=== PATIENT | male | born 1955 | race Caucasian/White ===

== ENCOUNTER → 2024-10-01 | Outpatient (CLI) | payer OTHER ==
[2024-10-01 15:43] LABS: ALT 16 U/L (10-49); AST 23 U/L (14-35); Albumin 4.4 g/dL (3.8-4.9); Alkaline Phosphatase 55 U/L (41-126); Blood Urea Nitrogen 13.5 mg/dL (9.0-27.0); Calcium 9.8 mg/dL (8.7-10.3); Carbon Dioxide 27.6 mmol/L (21.6-31.8); Chloride 102 mmol/L (96-109); Globulin 2.2 g/dL (1.6-3.3); Glucose 98 mg/dL (70-110); Potassium 4.3 mmol/L (3.5-5.5); Sodium 140 mmol/L (135-145); Total Bilirubin 0.4 mg/dL (0.3-1.2); Total Protein 6.6 g/dL (6.2-8.2)
[2024-10-01 15:44] LABS: Basophils # (A) 0.03 X 10*3/uL (0.00-0.10); Basophils % (A) 0.7 %; Eosinophils # (A) 0.09 X 10*3/uL (0.04-0.35); Eosinophils % (A) 2.2 %; HGB 14.4 g/dL (13.0-17.0); Lymphocytes # (A) 1.22 X 10*3/uL (0.90-5.00); MCH 29.9 pg (27.0-32.0); MCHC 33.5 g/dL (32.0-37.0); MCV 89.2 FL (80.0-97.0); Mean Platelet Volume 9.3 FL (9.5-12.2); Monocytes # (A) 0.56 X 10*3/uL (0.20-1.00); Monocytes % (A) 13.8 %; NRBC Per 100 WBC 0 X 10*3/uL (0.00-0.01); Neutrophils # (A) 2.15 X 10*3/uL (1.80-7.70); Neutrophils % (A) 53.1 %; Platelet Count 176 X 10*3/uL (140-440); RBC 4.82 X 10*6/uL (4.40-5.60); RDW 12.4 % (11.5-14.5); WBC 4.06 X 10*3/uL (4.50-10.00)
[2024-10-02 16:25] LABS: T Helper Cell (CD4) 808 cell/ul (443-1471); T Helper Cell (CD4) % 55 % (35-66); T Suppressor Cell (CD8) 304 cell/ul (190-832); T Suppressor Cell (CD8) % 21 % (9-37); T4/T8 Ratio (CD4:CD8) 2.7 (1.0-3.7)
[2024-10-04 09:16] LABS: HIV-1 RNA Not detected (Not detected)
== END | disposition home or self-care (01) ==
LOC: LABWHC1 10:15
PROVIDERS: ATTEND Internal Medicine Infectious Disease
DX: B20 Human immunodeficiency virus [HIV] disease (principal)
CPT/HCPCS: 36415; 80053; 85025; 86360; 87535

== ENCOUNTER 2025-01-07 10:40 | Observation (INO) | payer MEDICARE, OTHER ==
--- NOTE | 2025-01-07 11:14 | ED ---
Chest Pain HPI - General Source: patient, RN notes reviewed Mode of arrival: ambulatory Limitations: no limitations <Davide Patel - Last Filed: 01/07/25 11:12> - General Source: patient, RN notes reviewed Limitations: no limitations <Benedicto Mccoy - Last Filed: 01/07/25 14:26> - General Chief Complaint: Chest Pain Stated Complaint: chest pains Time Seen by Provider: 01/07/25 10:57 - History of Present Illness Initial Comments: Quick note: This is a 69-year-old male complaining of left lower chest pain x 3 days. Patient states pain is constant and throbbing with associated lightheadedness. Endorses family history of father and grandfather having cardiac issues but denies personal history. Denies dyspnea, radiating pain, sweating, pallor. (Davide Patel) Patient is a 69-year-old male present to the emergency department with concerns with chest discomfort. Onset of symptoms was around 3 days ago. Patient has had occasional symptoms previously however not been evaluated. Symptoms are more prolonged and consistent this time. Discomfort is currently rated 5/10. No associated dyspnea, nausea, or diaphoresis. No calf pain or swelling. (Benedicto Mccoy) - Related Data Allergies Allergy/AdvReac Type Severity Reaction Status Date / Time No Known Allergies Allergy Verified 01/07/25 10:44 Review of Systems ROS Other: All systems not noted in ROS Statement are negative. <Davide Patel - Last Filed: 01/07/25 11:12> ROS Other: All systems not noted in ROS Statement are negative. Constitutional: Denies: fever Eyes: Denies: eye pain ENT: Denies: ear pain Respiratory: Denies: dyspnea Cardiovascular: Reports: as per HPI, chest pain Endocrine: Denies: fatigue Gastrointestinal: Denies: abdominal pain Musculoskeletal: Denies: back pain <Benedicto Mcocy - Last Filed: 01/07/25 14:26> ROS Statement: Those systems with pertinent positive or pertinent negative responses have been documented in the HPI. EKG Findings - EKG Results: EKG: interpreted by ERMD (T wave inversion leads III and aVF.), sinus rhythm, normal axis, normal QRS <Benedicto Mccoy - Last Filed: 01/07/25 14:26> Past Medical History Additional Past Medical History / Comment(s): HIV History of Any Multi-Drug Resistant Organisms: None Reported Past Surgical History: Orthopedic Surgery Past Psychological History: No Psychological Hx Reported Smoking Status: Never smoker Past Alcohol Use History: Occasional Past Drug Use History: None Reported <Davide Patel - Last Filed: 01/07/25 11:12> General Exam Limitations: no limitations <Davide Patel - Last Filed: 01/07/25 11:12> Limitations: no limitations General appearance: alert, in no apparent distress Head exam: Present: normocephalic Eye exam: Present: normal appearance Neck exam: Present: normal inspection Respiratory exam: Present: normal lung sounds bilaterally Cardiovascular Exam: Present: regular rate, normal rhythm, normal heart sounds Expanded Peripheral pulses: 2+: Radial (R), Radial (L), Posterior Tibialis (R), Posterior Tibialis (L) GI/Abdominal exam: Present: soft. Absent: tenderness Extremities exam: Present: normal inspection. Absent: pedal edema, calf tenderness Neurological exam: Present: alert Psychiatric exam: Present: normal affect, normal mood Skin exam: Present: normal color <Benedicto Mccoy - Last Filed: 01/07/25 14:26> - General Exam Comments Initial Comments: Visual Physical Exam Vital signs reviewed General: Well-appearing, nontoxic, no acute distress. Head: Normocephalic, atraumatic Eyes: PERRLA, EOMI ENT: Airway patent Chest: Nonlabored breathing Skin: No visual rash, normal skin tone Neuro: Alert and oriented 3 Musculoskeletal: No gross abnormalities (Davide Patel) Course Vital Signs 01/07/25 01/07/25 10:42 13:58 Temperature 98.2 F Pulse Rate 71 64 Respiratory 20 Rate Blood Pressure 152/76 122/74 O2 Sat by Pulse 99 Oximetry Chest Pain MDM <Davide Patel - Last Filed: 01/07/25 11:12> <Benedicto Mccoy - Last Filed: 01/07/25 14:26> - MDM I completed the quick note portion of this chart signed SHERYL Dsouza (Davide Patel) Was pt. sent in by a medical professional or institution (THANIA Cook, [facility]ER, urgent care, hospital, or alf...) When possible be specific @ -No Did you speak to anyone other than the patient for history (EMS, parent, family, police, friend...)? What history was obtained from this source @ -No Did you review nursing and triage notes (agree or disagree)? Why? @ -I reviewed and agree with nursing and triage notes Were old charts reviewed (outside hosp., previous admission, EMS record, old EKG, old radiological studies, urgent care reports/EKG's, alf records)? Report findings @ -No old charts were reviewed Differential Diagnosis (chest pain, altered mental status, abdominal pain women, abdominal pain men, vaginal bleeding, weakness, fever, dyspnea, syncope, headache, dizziness, GI bleed, back pain, seizure, CVA, palpatations, mental health, musculoskeletal)? @ -Differential Chest Pain: Stable Angina, Unstable Angina, STEMI, NSTEMI Aortic Dissection, Pneumothorax, Musculoskeletal, Esophageal Spasm GERD, Cholecystitis, Pancreatitis, Zoster, this is not meant to be an all-inclusive list. EKG interpreted by me (3pts min.). @ -As above X-rays interpreted by me (1pt min.). @ -Chest x-ray does not reveal acute abnormality CT interpreted by me (1pt min.). @ -None done U/S interpreted by me (1pt. min.). @ -None done What testing was considered but not performed or refused? (CT, X-rays, U/S, labs)? Why? @ -None What meds were considered but not given or refused? Why? @ -None Did you discuss the management of the patient with other professionals (professionals i.e. , PA, COAL MINER, lab, RT, psych nurse, social welfare research worker, phytochemistry professor, teacher, budget officer, adult protective caseworker)? Give summary @ -Case was discussed with Dr. Cheema who will admit covering Dr. Bruno Was smoking cessation discussed for >3mins.? @ -No Was critical care preformed (if so, how long)? @ -No Were there social determinants of health that impacted care today? How? (Homelessness, low income, unemployed, alcoholism, drug addiction, transportation, low edu. Level, literacy, decrease access to med. care, residential, rehab)? @ -No Was there de-escalation of care discussed even if they declined (Discuss DNR or withdrawal of care, Hospice)? DNR status @ -No What co-morbidities impacted this encounter? (DM, HTN, Smoking, COPD, CAD, Cancer, CVA, ARF, Chemo, Hep., AIDS, mental health diagnosis, sleep apnea, morbid obesity)? @ -None Was patient admitted / discharged? Hospital course, mention meds given and route, prescriptions, significant lab abnormalities, going to OR and other pertinent info. @ -Patient presents with chest discomfort. Initial troponin unremarkable. Patient will be admitted with cardiac consult. Admission orders written. Patient updated on results and plan. Undiagnosed new problem with uncertain prognosis? @ -No Drug Therapy requiring intensive monitoring for toxicity (Heparin, Nitro, Insulin, Cardizem)? @ -No Were any procedures done? @ -No Diagnosis/symptom? @ -Chest pain Acute, or Chronic, or Acute on Chronic? @ -Acute Uncomplicated (without systemic symptoms) or Complicated (systemic symptoms)? @ -Default Side effects of treatment? @ -No Exacerbation, Progression, or Severe Exacerbation? @ -No Poses a threat to life or bodily function? How? (Chest pain, [place], MA, pneumonia, PE, COPD, DKA, ARF, appy, cholecystitis, CVA, Diverticulitis, Homicidal, Suicidal, threat to staff... and all critical care pts) @ -Threat to cardiac function (Benedicto Mccoy) Disposition <Davide Patel - Last Filed: 01/07/25 11:12> Is patient prescribed a controlled substance at d/c from ED?: No Time of Disposition: 14:26 <Benedicto Mccoy - Last Filed: 01/07/25 14:26> Clinical Impression: Chest pain Disposition: ADMITTED IP TO THIS HOSP Referrals: Shannan Henao MD [Primary Care Provider] - 1-2 days
[2025-01-07 11:16] LABS: Appearance,Urine Clear (Clear); Bilirubin,Urine Negative (Negative); Blood,Urine Negative (Negative); Color,Urine Colorless; Glucose,Urine (UA) Trace (Negative); Ketones,Urine Negative (Negative); Leukocyte Esterase,Urine Negative (Negative); Nitrite,Urine Negative (Negative); Protein,Urine Negative (Negative); Specific Gravity,Urine 1.002 (1.001-1.035); Urobilinogen,Urine <2.0 mg/dL (<2.0)
[2025-01-07 11:22] LABS: Basophils % (A) 0 %; Eosinophils # (A) 0.1 k/uL (0-0.7); Eosinophils % (A) 2 %; HCT 47.5 % (39.0-53.0); HGB 15.3 gm/dL (13.0-17.5); Lymphocytes # (A) 1.3 k/uL (1.0-4.8); Lymphocytes % (A) 30 %; MCH 29.6 pg (25.0-35.0); MCHC 32.2 g/dL (31.0-37.0); MCV 91.7 fL (80.0-100.0); Mean Platelet Volume 6.9; Monocytes # (A) 0.3 k/uL (0-1.0); Monocytes % (A) 7 %; Neutrophils # (A) 2.5 k/uL (1.3-7.7); Neutrophils % (A) 58 %; Platelet Count 201 k/uL (150-450); RBC 5.18 m/uL (4.30-5.90); RDW 12.6 % (11.5-15.5); WBC 4.2 k/uL (3.8-10.6)
[2025-01-07 11:28] LABS: INR 0.9 (<1.2); Partial Thromboplastin Time 23.1 sec (22.0-30.0); Prothrombin Time 10.4 sec (10.0-12.5)
[2025-01-07 11:44] LABS: ALT 17 U/L (4-49); AST 24 U/L (17-59); African American GFR (CKD) >90 (>60 ml/min/1.73 sqM); Albumin 4.6 g/dL (3.5-5.0); Alkaline Phosphatase 55 U/L (38-126); Anion Gap 11 mmol/L; Blood Urea Nitrogen 18 mg/dL (9-20); Calcium 10.2 mg/dL (8.4-10.2); Carbon Dioxide 26 mmol/L (22-30); Chloride 102 mmol/L (98-107); Glucose 106 mg/dL (74-99); Magnesium 2.1 mg/dL (1.6-2.3); Non-African American GFR(CKD) 86 (>60 ml/min/1.73 sqM); Potassium 4.1 mmol/L (3.5-5.1); Sodium 139 mmol/L (137-145); Total Bilirubin 0.6 mg/dL (0.2-1.3); Total Protein 7.4 g/dL (6.3-8.2)
--- NOTE | 2025-01-07 12:09 | XR ---
EXAMINATION TYPE: XR chest 2V DATE OF EXAM: 01/07/2025 11:59 AM COMPARISON: None CLINICAL INDICATION: Male, 69 years old with history of Chest Pain; TECHNIQUE: XR chest 2V Frontal and lateral views of the chest. FINDINGS: Lungs/Pleura: There is flattening of the diaphragm with increased lucency of the lungs. No evidence o f pneumothorax, pleural effusion or focal consolidation. Pulmonary vascularity: Unremarkable. Heart/mediastinum: Cardiomediastinal silhouette is unremarkable. Musculoskeletal: No acute osseous pathology. IMPRESSION: 1. No acute cardiopulmonary disease process. 2. COPD changes. [facility], , 01/07/2025 12:07 PM
[2025-01-07] MEDS ORDERED: NITROGLYCERIN SL TABS 0.4 MG TAB SUBLINGUAL PRN (14:27)
[2025-01-07] MEDS: NITROGLYCERIN OINT 1 INCH/GM PACKET TOPICAL SCH (14:52)
[2025-01-07] MEDS: ASPIRIN 81 MG PO STA (14:53)
[2025-01-07] MEDS: (Elviteg/Cob/Emtri/Tenof Alafen [Genvoya Tablet] 1 EACH Tablet) PO SCH (20:03)
[2025-01-07] MEDS: GABAPENTIN 300 MG CAP PO SCH (20:03)
[2025-01-07] MEDS: ATORVASTATIN 10 MG TAB PO SCH (20:03)
[2025-01-08] MEDS: ASPIRIN 81 MG PO SCH (08:09)
[2025-01-08] MEDS ORDERED: ASPIRIN 325 MG TAB PO SCH (09:00)
[2025-01-08 09:28] LABS: Chol/HDL Ratio 3.89 Ratio; LDL Cholesterol,Calculated 114.7 mg/dL (0.0-131.0)
--- NOTE | 2025-01-08 09:50 | P.CRDCN ---
History of Present Illness History of present illness: HISTORY OF PRESENT ILLNESS: This is a 69-year-old male with a past medical history significant for HIV and hyperlipidemia. Patient does not follow with a coal passer. We have been asked to see the patient in consultation for chest pain. Patient examined at the bedside. Patient reports pain in the middle of his chest that started a few days. He states the pain is not worse or better with movement. He states it was a dull achy pain. He does report having some occasional sharp pains under the left breast. He does report a family history of CAD. He denies any chest pain at the time of examination. DIAGNOSTICS: - EKG reveals sinus mechanism with T wave inversions inferiorly. No previous EKG available for comparison. - Chest xray COPD changes. No acute cardiopulmonary process. - Laboratory data: WBC 4.2. Hemoglobin 15.3. Platelet count 201. Sodium 139. Potassium 4.1. BUN 18. Creatinine 0.92. Magnesium 2.1. Troponin negative x 3 - Current home cardiac medications include simvastatin 10 mg at night and aspirin 81 mg daily. - No previous echocardiogram, stress test, or cardiac catheterization available in EMR for review REVIEW OF SYSTEMS: At the time of my exam: CONSTITUTIONAL: Denies fever or chills. HEENT: Denies blurred vision, vision changes, or eye pain. Denies hemoptysis CARDIOVASCULAR: Denies chest pain. Denies orthopnea. Denies PND. Denies palpitations RESPIRATORY: Denies shortness of breath. GASTROINTESTINAL: Denies abdominal pain. Denies nausea or vomiting. HEMATOLOGIC: Denies bleeding disorders. GENITOURINARY: Denies any blood in urine. SKIN: Denies pruitis. Denies rash. PHYSICAL EXAM: VITAL SIGNS: Reviewed. GENERAL: Well-developed in no acute distress. HEENT: Head is normocephalic. Pupils are equal, round. Sclerae anicteric. Mucous membranes of the mouth are moist. Neck supple. No JVD or thyromegaly LUNGS: Respirations even and unlabored. Lungs essentially clear to auscultation bilaterally. HEART: Regular rate and rhythm. S1 and S2 heard. ABDOMEN: Soft. Nondistended. Nontender. EXTREMITIES: Normal range of motion. No clubbing or cyanosis. Peripheral pulses intact. No lower extremity edema NEUROLOGIC: Awake and alert. Oriented x 3. ASSESSMENT: Chest pain, troponin negative x 3 Hyperlipidemia History of HIV Family history of premature coronary artery disease PLAN: An acute coronary event has been ruled out Obtain 2D echo to assess cardiac structure and function Resume home cardiac medications including aspirin and simvastatin Patient to undergo stress echocardiogram on Friday Further recommendations pending patient course Nurse practitioner note has been reviewed by physician. Signing provider agrees with the documented findings, assessment, and plan of care documented by PUBLIC WEIGHER as a scribe. Past Medical History Additional Past Medical History / Comment(s): HIV History of Any Multi-Drug Resistant Organisms: None Reported Past Surgical History: Orthopedic Surgery Past Psychological History: No Psychological Hx Reported Smoking Status: Never smoker Past Alcohol Use History: Occasional Past Drug Use History: None Reported Medications and Allergies Home Medications Medication Instructions Recorded Confirmed Type Aspirin EC [Ecotrin Low Dose] 81 mg PO DAILY 01/07/25 01/07/25 History Elviteg/Cob/Emtri/Tenof Alafen 1 tab PO HS 01/07/25 01/07/25 History [Genvoya Tablet] Gabapentin 300 mg PO BID 01/07/25 01/07/25 History Simvastatin [Zocor] 10 mg PO HS 01/07/25 01/07/25 History Allergies Allergy/AdvReac Type Severity Reaction Status Date / Time Unknown pain medication Allergy Unknown Uncoded 01/07/25 15:23 Physical Exam Vitals: Vital Signs Temp Pulse Pulse Resp BP BP Pulse Ox 01/08/25 02:00 98.3 F 73 16 94/51 98 01/07/25 20:00 97.8 F 63 17 124/71 96 01/07/25 16:50 97.8 F 64 16 126/71 98 01/07/25 16:38 97.6 F 70 16 116/69 97 01/07/25 15:30 67 18 129/70 97 01/07/25 13:58 64 122/74 01/07/25 10:42 98.2 F 71 20 152/76 99 Intake and Output 01/07/25 01/08/25 01/08/25 22:59 06:59 14:59 Intake Total 240 Balance 240 Intake: Oral 240 Other: Voiding Method Toilet # Voids 2 2 Weight 68.039 kg Results 01/07/25 11:02 01/07/25 11:02 Cardiac Enzymes 01/07/25 01/07/25 01/07/25 Range/Units 11:02 11:02 15:08 AST 24 (17-59) U/L Troponin I <0.012 <0.012 (0.000-0.034) ng/mL 01/07/25 Range/Units 18:32 AST (17-59) U/L Troponin I <0.012 (0.000-0.034) ng/mL Coagulation 01/07/25 Range/Units 11:02 PT 10.4 (10.0-12.5) sec APTT 23.1 (22.0-30.0) sec CBC 01/07/25 Range/Units 11:02 WBC 4.2 (3.8-10.6) k/uL RBC 5.18 (4.30-5.90) m/uL Hgb 15.3 (13.0-17.5) gm/dL Hct 47.5 (39.0-53.0) % Plt Count 201 (150-450) k/uL Comprehensive Metabolic Panel 01/07/25 Range/Units 11:02 Sodium 139 (137-145) mmol/L Potassium 4.1 (3.5-5.1) mmol/L Chloride 102 (98-107) mmol/L Carbon Dioxide 26 (22-30) mmol/L BUN 18 (9-20) mg/dL Creatinine 0.92 (0.66-1.25) mg/dL Glucose 106 H (74-99) mg/dL Calcium 10.2 (8.4-10.2) mg/dL AST 24 (17-59) U/L ALT 17 (4-49) U/L Alkaline Phosphatase 55 (38-126) U/L Total Protein 7.4 (6.3-8.2) g/dL Albumin 4.6 (3.5-5.0) g/dL Current Medications Generic Name Dose Route Start Last Admin Trade Name Freq PRN Reason Stop Dose Admin Aspirin 81 mg 01/08/25 09:00 Aspirin 81 Mg PO DAILY DAVID Atorvastatin Calcium 10 mg 01/07/25 21:00 01/07/25 20:03 Atorvastatin 10 Mg Tab PO 10 mg HS DAVID Administration Gabapentin 300 mg 01/07/25 21:00 01/07/25 20:03 Gabapentin 300 Mg Cap PO 300 mg BID DAVID Administration Nitroglycerin 0.4 mg 01/07/25 14:27 Nitroglycerin Sl Tabs 0.4 Mg Tab SUBLINGUAL Q5M PRN Chest Pain Nitroglycerin 0.5 inch 01/07/25 14:30 01/08/25 05:10 Nitroglycerin Oint 1 Inch/Gm Packet TOPICAL Not Given Q6HR DAVID (Elviteg/Cob/Emtri/ 1 each 01/07/25 21:00 01/07/25 20:03 Tenof Alafen [ PO Not Given Genvoya Tablet] 1 HS DAVID Each Tablet) Intake and Output 01/07/25 01/08/25 01/08/25 22:59 06:59 14:59 Intake Total 240 Balance 240 Intake: Oral 240 Other: Voiding Method Toilet # Voids 2 2 Weight 68.039 kg 01/07/25 11:02 01/07/25 11:02
--- NOTE | 2025-01-08 11:27 | CA ---
Transthoracic Echo Report Name: Lior Palm Age: 69 Gender: M : 1955 Exam Date: 01/08/2025 09:12 Exam Location: [place] [facility] Ht (in): 66 Wt (lb): 150 Ordering Physician: Matilda Lozano Attending/Referring Phys: [id number], Blake Floor Associate La Zuleta RDCS Procedure CPT: Indications: LV function, chest pain Cardiac Hx: Technical Quality: Good Contrast 1: Total Dose (mL): Contrast 2: Total Dose (mL): MEASUREMENTS (Male / Female) Normal Values 2D ECHO LV Diastolic Diameter PLAX 4.6 cm 4.2 - 5.9 / 3.9 - 5.3 cm LV Systolic Diameter PLAX 2.5 cm IVS Diastolic Thickness 1.3 cm 0.6 - 1.0 / 0.6 - 0.9 cm LVPW Diastolic Thickness 1.1 cm 0.6 - 1.0 / 0.6 - 0.9 cm LV Relative Wall Thickness 0.5 RV Internal Dim ED PLAX 1.9 cm LA Systolic Diameter LX 3.1 cm 3.0 - 4.0 / 2.7 - 3.8 cm LV Diastolic Volume MOD BP 64.2 cm??? 67 - 155 / 56 - 104 cm??? LV Systolic Volume MOD BP 24.8 cm??? - 58 / 19 - 49 cm??? LV Ejection Fraction MOD BP 61.4 % >= 55 % LV Cardiac Index MOD BP 1543.6 cm???/min???m??? LV Diastolic Volume MOD 4C 84.0 cm??? LV Systolic Volume MOD 4C 26.4 cm??? LV Ejection Fraction MOD 4C 68.5 % LV Cardiac Index MOD 4C 2251.6 cm???/min???m??? LV Diastolic Length 4C 7.0 cm LV Systolic Length 4C 5.6 cm LV Diastolic Volume MOD 2C 47.1 cm??? LV Systolic Volume MOD 2C 21.2 cm??? LV Ejection Fraction MOD 2C 55.1 % LV Cardiac Index MOD 2C 1015.7 cm???/min???m??? LV Diastolic Length 2C 6.6 cm LV Systolic Length 2C 6.2 cm LA Volume 48.8 cm??? 18 - 58 / 22 - 52 cm??? LA Volume Index 27.3 cm???/m??? 16 - 28 cm???/m??? M-MODE Aortic Root Diameter MM 3.7 cm LA Systolic Diameter MM 3.3 cm LA Ao Ratio MM 0.9 AV Cusp Separation MM 2.1 cm DOPPLER AI Peak Velocity 397.6 cm/s AI Peak Gradient 63.2 mmHg AI Pressure Half Time 1076.6 ms MV Area PHT 3.1 cm??? Mitral E Point Velocity 79.3 cm/s Mitral A Point Velocity 88.3 cm/s Mitral E to A Ratio 0.9 MV Deceleration Time 245.9 ms TR Peak Velocity 210.6 cm/s TR Peak Gradient 17.7 mmHg FINDINGS Left Ventricle Left ventricular ejection fraction is estimated at 55-60 %. Normal left ventricular systolic function with no obvious regional wall motion abnormalities. Left ventricular cavity size normal. Mildly increased septal wall thickness. Right Ventricle Normal right ventricular size and function. Right ventricular systolic pressure within normal limits. Right Atrium Normal right atrial size. Left Atrium Normal left atrial size. Mitral Valve Structurally normal mitral valve. Mild mitral regurgitation. No mitral stenosis. Aortic Valve Trileaflet aortic valve. Mild aortic regurgitation. No aortic stenosis. Thickened aortic valve without stenosis. Tricuspid Valve Structurally normal tricuspid valve. Mild tricuspid regurgitation. No tricuspid stenosis. Pulmonic Valve Structurally normal pulmonic valve. Trace pulmonic regurgitation. No pulmonic stenosis. Pericardium No pericardial or pleural effusion. Aorta Mild aortic dilatation at the level of the sinuses of valsalva (root). CONCLUSIONS normal lv function Previewed by: Dr. Damien Fried MD (Electronically Signed) Final Date: 08 January 2025 11:27
--- NOTE | 2025-01-08 12:16 | P.HPIM ---
History of Present Illness H&P Date: 01/08/25 Lior Palm, is a 69-year-old male who presented to [facility] emergency room with a chief complaint of chest pain, patient describes a dull ache on the left side of his chest that started 2 days ago. He was evaluated in the emergency room vital examination on presentation reveal ed a temperature of 98.2 pulse 71 respiration 20 blood pressure 152/76 pulse ox 99% on room air Laboratory data revealed a white blood count of 4.2 hemoglobin 15.3 platelet count 201 BUN 18 creatinine 0.92 troponin 0.012 Testing in the emergency room revealed EKG revealed sinus rhythm with nonspecif ic T wave abnormalities, chest x-ray revealed no acute cardiopulmonary disease process, COPD changes. Patient was admitted to medical floor for further evaluation and treatment Past Medical History Additional Past Medical History / Comment(s): HIV History of Any Multi-Drug Resistant Organisms: None Reported Past Surgical History: Orthopedic Surgery Past Psychological History: No Psychological Hx Reported Smoking Status: Never smoker Past Alcohol Use History: Occasional Past Drug Use History: None Reported Medications and Allergies Home Medications Medication Instructions Recorded Confirmed Type Aspirin EC [Ecotrin Low Dose] 81 mg PO DAILY 01/07/25 01/07/25 History Elviteg/Cob/Emtri/Tenof Alafen 1 tab PO HS 01/07/25 01/07/25 History [Genvoya Tablet] Gabapentin 300 mg PO BID 01/07/25 01/07/25 History Simvastatin [Zocor] 10 mg PO HS 01/07/25 01/07/25 History Allergies Allergy/AdvReac Type Severity Reaction Status Date / Time Unknown pain medication Allergy Unknown Uncoded 01/07/25 15:23 Physical Exam Vitals: Vital Signs Temp Pulse Pulse Resp BP BP Pulse Ox 01/08/25 07:00 98.2 F 60 16 111/62 96 01/08/25 02:00 98.3 F 73 16 94/51 98 01/07/25 20:00 97.8 F 63 17 124/71 96 01/07/25 16:50 97.8 F 64 16 126/71 98 01/07/25 16:38 97.6 F 70 16 116/69 97 01/07/25 15:30 67 18 129/70 97 01/07/25 13:58 64 122/74 01/07/25 10:42 98.2 F 71 20 152/76 99 Intake and Output 01/07/25 01/08/25 01/08/25 22:59 06:59 14:59 Intake Total 240 118 Balance 240 118 Intake: Oral 240 118 Other: Voiding Method Toilet Toilet # Voids 2 2 Weight 68.039 kg In general patient is alert and oriented x 3 in no distress HEENT head normocephalic and atraumatic Neck is supple no JVD no goiter no lymphadenopathy no carotid bruit Chest examination is clear to auscultation no crackles no wheezing Cardiac exam reveals regular heart sounds S1 and S2 no gallops no murmurs Abdomen is soft nontender no organomegaly with normal bowel sounds Extremity exam reveals no edema no cyanosis or clubbing Neurological examination reveals no gross focal deficits Results CBC & Chem 7: 01/07/25 11:02 01/07/25 11:02 Labs: Abnormal Lab Results - Last 24 Hours (Table) 01/07/25 01/07/25 01/07/25 Range/Units 11:02 11:02 11:02 Glucose 106 H (74-99) mg/dL Triglycerides 166.00 H (0.00-149.00) mg/dL Urine Glucose (UA) Trace H (Negative) Assessment and Plan Plan: Chest pain Underlying history of hyperlipidemia Underlying history of HIV positive status Underlying history of peripheral neuropathy Family history of premature coronary artery disease At this time patient is admitted to telemetry floor Home medications reviewed and reordered Serial EKG and cardiac enzymes ordered, echocardiogram ordered, cardiology consultation requested Will follow closely
[2025-01-08] MEDS: ATORVASTATIN 20 MG TAB PO SCH (19:35)
--- NOTE | 2025-01-09 09:05 | P.PN ---
Subjective Progress Note Date: 01/09/25 Lior Palm, is a 69-year-old male who presented to [facility] emergency room with a chief complaint of chest pain, patient describes a dull ache on the left side of his chest that started 2 days ago. He was evaluated in the emergency room vital examination on presentation revealed a temperature of 98.2 pulse 71 respiration 20 blood pressure 152/76 pulse ox 99% on room air Laboratory data revealed a white blood count of 4.2 hemoglobin 15.3 platelet count 201 BUN 18 creatinine 0.92 troponin 0.012 Testing in the emergency room revealed EKG revealed sinus rhythm with nonspecific T wave abnormalities, chest x-ray revealed no acute cardiopulmonary disease process, COPD changes. Patient was admitted to medical floor for further evaluation and treatment On 01/09/2025 patient was seen and examined on the medical floor he is alert and oriented x 3 in no apparent distress he is still having some dull ache on the left side of his chest otherwise he denies any complaints there is no fever or chills no headache or dizziness no shortness of breath no cough no nausea or vomiting no abdominal pain no diarrhea and no urinary symptoms, plan per cardiology is for a stress test on Friday. Objective - Vital Signs Vital signs: Vital Signs Temp 97.7 F 01/09/25 01:25 Pulse 71 01/09/25 01:25 Resp 16 01/09/25 01:25 BP 119/74 01/09/25 01:25 Pulse Ox 97 01/09/25 01:25 FiO2 Intake & Output 01/08/25 01/08/25 01/09/25 06:59 18:59 06:59 Intake Total 354 Balance 354 Intake: Oral 354 Other: Voiding Method Toilet Toilet Toilet # Voids 2 2 3 - Exam In general patient is alert and oriented x 3 in no distress HEENT head normocephalic and atraumatic Neck is supple no JVD no goiter no lymphadenopathy no carotid bruit Chest examination is clear to auscultation no crackles no wheezing Cardiac exam reveals regular heart sounds S1 and S2 no gallops no murmurs Abdomen is soft nontender no organomegaly with normal bowel sounds Extremity exam reveals no edema no cyanosis or clubbing Neurological examination reveals no gross focal deficits - Labs CBC & Chem 7: 01/07/25 11:02 01/07/25 11:02 Labs: Abnormal Lab Results - Last 24 Hours (Table) 01/07/25 Range/Units 11:02 Triglycerides 166.00 H (0.00-149.00) mg/dL Assessment and Plan Plan: Chest pain Underlying history of hyperlipidemia Underlying history of HIV positive status Underlying history of peripheral neuropathy Family history of premature coronary artery disease At this time patient is admitted to telemetry floor Home medications reviewed and reordered Serial EKG and cardiac enzymes ordered, echocardiogram ordered, cardiology consultation requested Will follow closely
[2025-01-09 09:21] LABS: Basophils # (A) 0.03 X 10*3/uL (0.00-0.10); Basophils % (A) 0.6 %; Eosinophils # (A) 0.13 X 10*3/uL (0.04-0.35); Eosinophils % (A) 2.6 %; HCT 41.7 % (39.6-50.0); HGB 14.3 g/dL (13.0-17.0); Lymphocytes # (A) 1.91 X 10*3/uL (0.90-5.00); Lymphocytes % (A) 38.8 %; MCH 30.5 pg (27.0-32.0); MCHC 34.3 g/dL (32.0-37.0); MCV 88.9 FL (80.0-97.0); Mean Platelet Volume 9.8 FL (9.5-12.2); Monocytes # (A) 0.44 X 10*3/uL (0.20-1.00); Monocytes % (A) 8.9 %; NRBC Per 100 WBC 0 X 10*3/uL (0.00-0.01); Neutrophils % (A) 48.9 %; Platelet Count 186 X 10*3/uL (140-440); RBC 4.69 X 10*6/uL (4.40-5.60); RDW 12.1 % (11.5-14.5); WBC 4.92 X 10*3/uL (4.50-10.00)
[2025-01-09 09:22] LABS: ALT 14 U/L (10-49); AST 20 U/L (14-35); Albumin 4.1 g/dL (3.8-4.9); Albumin/Globulin Ratio 2.16 Ratio (1.60-3.17); Alkaline Phosphatase 54 U/L (41-126); Blood Urea Nitrogen 17.6 mg/dL (9.0-27.0); Calcium 9.5 mg/dL (8.7-10.3); Carbon Dioxide 25.4 mmol/L (21.6-31.8); Chloride 104 mmol/L (96-109); Globulin 1.9 g/dL (1.6-3.3); Glucose 96 mg/dL (70-110); Potassium 4.5 mmol/L (3.5-5.5); Sodium 139 mmol/L (135-145); Total Bilirubin 0.2 mg/dL (0.3-1.2)
--- NOTE | 2025-01-09 10:18 | P.PN ---
Subjective HISTORY OF PRESENT ILLNESS: This is a 69-year-old male with a past medical history significant for HIV and hyperlipidemia. Patient does not follow with a receiver bulk system. We have been asked to see the patient in consultation for chest pain. Patient examined at the bedside. Patient reports pain in the middle of his chest that started a few days. He states the pain is not worse or better with movement. He states it was a dull achy pain. He does report having some occasional sharp pains under the left breast. He does report a family history of CAD. He denies any chest pain at the time of examination. DIAGNOSTICS: - EKG reveals sinus mechanism with T wave inversions inferiorly. No previous EKG available for comparison. - Chest xray COPD changes. No acute cardiopulmonary process. - Laboratory data: WBC 4.2. Hemoglobin 15.3. Platelet count 201. Sodium 139. Potassium 4.1. BUN 18. Creatinine 0.92. Magnesium 2.1. Troponin negative x 3 - Current home cardiac medications include simvastatin 10 mg at night and aspirin 81 mg daily. - No previous echocardiogram, stress test, or cardiac catheterization available in EMR for review 01/09/2025 Patient examined this morning at the bedside. Patient currently denies chest pain or pressure. He denies shortness of breath. Vital signs are stable. 2D echo obtained revealing ejection fraction 55-60 % with mild MR and mild TR. PHYSICAL EXAM: VITAL SIGNS: Reviewed. GENERAL: Well-developed in no acute distress. HEENT: Head is normocephalic. Pupils are equal, round. Sclerae anicteric. Mucous membranes of the mouth are moist. Neck supple. No JVD or thyromegaly LUNGS: Respirations even and unlabored. Lungs essentially clear to auscultation bilaterally. HEART: Regular rate and rhythm. S1 and S2 heard. ABDOMEN: Soft. Nondistended. Nontender. EXTREMITIES: Normal range of motion. No clubbing or cyanosis. Peripheral pulses intact. No lower extremity edema NEUROLOGIC: Awake and alert. Oriented x 3. ASSESSMENT: Chest pain, troponin negative x 3 Hyperlipidemia History of HIV Family history of premature coronary artery disease PLAN: Continue current cardiac medications including aspirin and simvastatin N.p.o. at midnight Patient to undergo stress echocardiogram tomorrow. If negative, patient may be discharged home from a cardiac standpoint Further recommendations pending patient course Nurse practitioner note has been reviewed by physician. Signing provider agrees with the documented findings, assessment, and plan of care documented by LARGE ENGINE ASSEMBLER as a scribe. Objective - Vital Signs Vital signs: Vital Signs Temp 97.4 F L 01/09/25 07:00 Pulse 70 01/09/25 07:00 Resp 17 01/09/25 07:00 BP 114/66 01/09/25 07:00 Pulse Ox 98 01/09/25 07:50 FiO2 Intake & Output 01/08/25 01/09/25 01/09/25 18:59 06:59 18:59 Intake Total 354 118 Balance 354 118 Intake: Oral 354 118 Other: Voiding Method Toilet Toilet # Voids 2 3 - Labs CBC & Chem 7: 01/09/25 04:46 01/09/25 04:46 Labs: Abnormal Lab Results - Last 24 Hours (Table) 01/09/25 Range/Units 04:46 Total Bilirubin 0.2 L (0.3-1.2) mg/dL Total Protein 6.0 L (6.2-8.2) g/dL
[2025-01-09] MEDS: ENOXAPARIN 40 MG/0.4 ML SYRINGE SQ SCH (12:53)
--- NOTE | 2025-01-10 08:17 | P.PN ---
Subjective Progress Note Date: 01/10/25 HISTORY OF PRESENT ILLNESS: This is a 69-year-old male with a past medical history significant for HIV and hyperlipidemia. Patient does not follow with a painting manager. We have been asked to see the patient in consultation for chest pain. Patient examined at the bedside. Patient reports pain in the middle of his chest that started a few days. He states the pain is not worse or better with movement. He states it was a dull achy pain. He does report having some occasional sharp pains under the left breast. He does report a family history of CAD. He denies any chest pain at the time of examination. DIAGNOSTICS: - EKG reveals sinus mechanism with T wave inversions inferiorly. No previous EKG available for comparison. - Chest xray COPD changes. No acute cardiopulmonary process. - Laboratory data: WBC 4.2. Hemoglobin 15.3. Platelet count 201. Sodium 139. Potassium 4.1. BUN 18. Creatinine 0.92. Magnesium 2.1. Troponin negative x 3 - Current home cardiac medications include simvastatin 10 mg at night and aspirin 81 mg daily. - No previous echocardiogram, stress test, or cardiac catheterization available in EMR for review 01/09/2025 Patient examined this morning at the bedside. Patient currently denies chest pain or pressure. He denies shortness of breath. Vital signs are stable. 2D echo obtained revealing ejection fraction 55-60 % with mild MR and mild TR. 01/10 Patient seen and examined. Patient is scheduled for stress echocardiogram today. Blood pressure 116/71, heart rate 67, pulse ox 98% on room air. Patient denies chest pain chest pressure or shortness of breath. PHYSICAL EXAM: VITAL SIGNS: Reviewed. GENERAL: Well-developed in no acute distress. HEENT: Head is normocephalic. Pupils are equal, round. Sclerae anicteric. Mucous membranes of the mouth are moist. Neck supple. No JVD or thyromegaly LUNGS: Respirations even and unlabored. Lungs essentially clear to auscultation bilaterally. HEART: Regular rate and rhythm. S1 and S2 heard. ABDOMEN: Soft. Nondistended. Nontender. EXTREMITIES: Normal range of motion. No clubbing or cyanosis. Peripheral pul ses intact. No lower extremity edema NEUROLOGIC: Awake and alert. Oriented x 3. ASSESSMENT: Chest pain, troponin negative x 3 Hyperlipidemia History of HIV Family history of premature coronary artery disease PLAN: Continue current cardiac medications including aspirin and simvastatin N.p.o. Patient to undergo stress echocardiogram today. If negative, patient may be discharged home from a cardiac standpoint Nurse practitioner note has been reviewed by physician. Signing provider agrees with the documented findings, assessment, and plan of care documented by RUG INSPECTOR HELPER as a scribe. Objective - Vital Signs Vital signs: Vital Signs Temp 97.2 F L 01/10/25 01:05 Pulse 67 01/10/25 01:05 Resp 18 01/10/25 01:05 BP 116/71 01/10/25 01:05 Pulse Ox 98 01/10/25 01:05 FiO2 Intake & Output 01/09/25 01/10/25 01/10/25 18:59 06:59 18:59 Intake Total 236 118 Balance 236 118 Intake: Oral 236 118 Other: Voiding Method Toilet Toilet Toilet # Voids 3 2 # Bowel Movements 1 - Labs CBC & Chem 7: 01/09/25 04:46 01/09/25 04:46 Labs: Abnormal Lab Results - Last 24 Hours (Table) 01/09/25 Range/Units 04:46 Total Bilirubin 0.2 L (0.3-1.2) mg/dL Total Protein 6.0 L (6.2-8.2) g/dL
[2025-01-10 08:21] VITALS: RESP 16
[2025-01-10 09:20] LABS: Basophils # (A) 0.02 X 10*3/uL (0.00-0.10); Basophils % (A) 0.4 %; Eosinophils # (A) 0.14 X 10*3/uL (0.04-0.35); Eosinophils % (A) 2.9 %; HCT 41.7 % (39.6-50.0); HGB 14.2 g/dL (13.0-17.0); Lymphocytes # (A) 1.61 X 10*3/uL (0.90-5.00); Lymphocytes % (A) 33.6 %; MCHC 34.1 g/dL (32.0-37.0); MCV 88.2 FL (80.0-97.0); Mean Platelet Volume 9.7 FL (9.5-12.2); Monocytes # (A) 0.42 X 10*3/uL (0.20-1.00); Monocytes % (A) 8.8 %; NRBC Per 100 WBC 0 X 10*3/uL (0.00-0.01); Neutrophils # (A) 2.58 X 10*3/uL (1.80-7.70); Neutrophils % (A) 53.9 %; Platelet Count 183 X 10*3/uL (140-440); RBC 4.73 X 10*6/uL (4.40-5.60); RDW 11.9 % (11.5-14.5); WBC 4.79 X 10*3/uL (4.50-10.00)
[2025-01-10 09:22] LABS: ALT 14 U/L (10-49); AST 20 U/L (14-35); Albumin 4.2 g/dL (3.8-4.9); Alkaline Phosphatase 54 U/L (41-126); Blood Urea Nitrogen 18.5 mg/dL (9.0-27.0); Calcium 9.4 mg/dL (8.7-10.3); Chloride 104 mmol/L (96-109); Globulin 2.1 g/dL (1.6-3.3); Glucose 93 mg/dL (70-110); Potassium 4.4 mmol/L (3.5-5.5); Sodium 140 mmol/L (135-145); Total Bilirubin 0.3 mg/dL (0.3-1.2); Total Protein 6.3 g/dL (6.2-8.2)
--- NOTE | 2025-01-10 10:25 | CA ---
Stress Echo Report Lior Palm Age: 69 Gender: M : 1955 Exam Date: 01/10/2025 09:27 Exam Location: [place] Stress Ht (in): 66 Wt (lb): 150 Ordering Physician: Matilda Lozano Referring Physician: [id number] Control Equipment Electrician: SHYANN Technologist Procedure CPT: Indication: CP ICD-9 Codes: Rhythm: Patient History: Cardiac Medications: SEE CHART,,,,, Medications in past 24 hours: Contrast: Definity Stress Results Protocol: Glenn Total dose(mL): 2 Exercise Duration (min:sec): 10:[address] Depression (mm): Angina Score: Pereyra Score: METS: 12.1 Resting HR: 71 Resting BP: 120 / 72 Peak HR: 149 Peak BP: 204 / 59 Max Predicted HR: 153 97 % Max Predicted HR Target HR: 130 Double Product: 98235 Stress Summary: BP Response: Reason for Termination: MAX EXERTION/TARGET HR Cardiac Symptoms: CHEST PAIN ECG Analysis Resting ECG: Stress ECG: Arrhythmia: Echo Analysis Resting Echo: Peak Echo Analysis: MEASUREMENTS (Male/Female) Normal Values CONCLUSIONS Baseline EKG revealed normal sinus rhythm without significant ST-T changes. Patient walked for 10 minutes 57 seconds and achieved a maximal heart rate of 149 bpm which is well above 85% of predicted maximal. There was no angina. There was no significant arrhythmia. There were no ST segment changes to indicate ischemia. This is a negative stress test with good exercise capacity Baseline echo images revealed normal wall motion and wall thickening of all segments. At peak exercise there was good augmentation of left ventricular wall motion and wall thickening of all segments suggesting that there is no evidence of stress- induced ischemia on the study. Echo contrast was used to improve image. Final impression: Normal stress test by EKG criteria without evidence of ischemia. Good exercise capacity Normal stress echocardiogram without evidence of ischemia. Dr. Ga Baeza MD (Electronically Signed) Final Date: 10 January 2025 10:24
[2025-01-10 15:50] VITALS: BP 124/73; PULSE 71; TEMP 97.4
--- NOTE | 2025-01-10 17:20 | P.DS ---
Providers Date of admission: 01/07/25 14:28 Expected date of discharge: 01/10/25 Attending physician: Henrique Cheema Consults: 01/07/25 14:27 Consult Physician Urgent Consulting Provider: Joe Manzano Consult Reason/Comments: cp Do you want consulting provider notified?: Yes [facility] Course: Diagnosis on discharge: Chest pain Underlying history of hyperlipidemia Underlying history of HIV positive status Underlying history of peripheral neuropathy Family history of premature coronary artery disease Hospital course: Lior Palm, is a 69-year-old male who presented to [facility] emergency room with a chief complaint of chest pain, patient describes a dull ache on the left side of his chest that started 2 days ago. He was evaluated in the emergency room vital examination on presentation revealed a temperature of 98.2 pulse 71 respiration 20 blood pressure 152/76 pulse ox 99% on room air Laboratory data revealed a white blood count of 4.2 hemoglobin 15.3 platelet count 201 BUN 18 creatinine 0.92 troponin 0.012 Testing in the emergency room revealed EKG revealed sinus rhythm with nonspecific T wave abnormalities, chest x-ray revealed no acute cardiopulmonary disease process, COPD changes. Patient was admitted to medical floor for further evaluation and treatment On 01/09/2025 patient was seen and examined on the medical floor he is alert and oriented x 3 in no apparent distress he is still having some dull ache on the left side of his chest otherwise he denies any complaints there is no fever or chills no headache or dizziness no shortness of breath no cough no nausea or vomiting no abdominal pain no diarrhea and no urinary symptoms, plan per cardiology is for a stress test on Friday. On 01/10/2025 patient was seen and examined on the medical floor he is alert and oriented x 3 in no apparent distress there is no fever or chills no headache or dizziness no chest pain but patient still has some discomfort on the left chest wall no shortness of breath no cough no nausea or vomiting no abdominal pain no diarrhea and no urinary symptoms. Patient underwent a stress echo test today which was within normal limits. He was evaluated by cardiology and was cleared for discharge. He will follow-up with his primary care physician for further evaluation of his symptoms as outpatient Plan - Discharge Summary New Discharge Prescriptions: Continue Simvastatin [Zocor] 10 mg PO HS Elviteg/Cob/Emtri/Tenof Alafen [Genvoya Tablet] 1 tab PO HS Gabapentin 300 mg PO BID Aspirin EC [Ecotrin Low Dose] 81 mg PO DAILY Discharge Medication List Aspirin EC [Ecotrin Low Dose] 81 mg PO DAILY 01/07/25 [History] Elviteg/Cob/Emtri/Tenof Alafen [Genvoya Tablet] 1 tab PO HS 01/07/25 [History] Gabapentin 300 mg PO BID 01/07/25 [History] Simvastatin [Zocor] 10 mg PO HS 01/07/25 [History] Follow up Appointment(s)/Referral(s): Shannan Henao MD [STAFF PHYSICIAN] - 1-2 days
== END 2025-01-10 17:41 | disposition home or self-care (01) ==
LOC: EC 10:40 → 6NMEDSUR 14:28
PROVIDERS: ADMIT Internal Medicine; ATTEND Internal Medicine
DX: R07.89 Other chest pain (principal); E78.5 Hyperlipidemia, unspecified; G62.9 Polyneuropathy, unspecified; Z21 Asymptomatic human immunodeficiency virus [HIV] infection status; Z79.82 Long term (current) use of aspirin; Z79.899 Other long term (current) drug therapy; Z82.49 Family history of ischemic heart disease and other diseases of the circulatory system
CPT/HCPCS: 96372 ×2; 99285; 36415; 94760; 93005; 93306; 80061; 80053 ×3; 83735; 84484; 85025 ×3; 85610; 85730; 81003; 71046; G0378 ×4; C8930; J1650 ×2; Q9957; 93351